=== PATIENT | male | born 1960 | race Caucasian/White ===

== ENCOUNTER 2019-09-20 12:03 | Emergency (ER) | payer BC ==
[2019-09-20] MEDS ORDERED: CLONIDINE HCL 0.1 MG TABLET PO ONE (12:53)
--- NOTE | 2019-09-20 12:56 | ER Document Report ---
ED Medical Screen (RME) - General Chief Complaint: High Blood Pressure Stated Complaint: HIGH BLOOD PRESSURE Time Seen by Provider: 09/20/19 12:36 Mode of Arrival: Ambulatory Information source: Patient Notes: Patient presents complaining of right ear pain for the past 2 days. Patient does report drainage to the ear canal. Patient also with asymptomatic hypertension. Patient was seen at urgent care and had a EKG performed and was told that he had an abnormal EKG and that he should present to the emergency for further evaluation of his blood pressure. Patient denies any chest pain, he adache, back pain, abdominal pain, lightheadedness or dizziness. I have greeted and performed a rapid initial assessment of this patient. A comprehensive ED assessment and evaluation of the patient, analysis of test results and completion of the medical decision making process will be conducted by additional ED providers. - Related Data Allergies/Adverse Reactions: No Known Allergies Allergy (Verified 09/20/19 12:35) Physical Exam - Vital signs Vitals: Temp Pulse Resp BP Pulse Ox 98.4 F 58 L 16 207/96 H 100 09/20/19 12:35 09/20/19 12:35 09/20/19 12:35 09/20/19 12:35 09/20/19 12:35 - Cardiovascular Rhythm: Regular Heart sounds: S1 appreciated, S2 appreciated Murmur: No Course - Re-evaluation Re-evalutation: 09/20/19 12:[address] Weir who reviewed patient's outpatient EKG. Recommends working patient up and giving Catapres at this time for blood pressure. - Vital Signs Vital signs: Temp Pulse Resp BP Pulse Ox 98.4 F 58 L 16 207/96 H 100 09/20/19 12:35 09/20/19 12:35 09/20/19 12:35 09/20/19 12:35 09/20/19 12:35
[2019-09-20 13:31] LABS: ABSOLUTE EOSINOPHILS # (AUTO) 0.1 10^3/uL (0.0-0.6); ABSOLUTE MONOCYTES (AUTO) 0.7 10^3/uL (0.1-1.4); ABSOLUTE NEUT (AUTO) 3.6 10^3/uL (1.7-8.2); BASOPHILS % (AUTO) 0.6 % (0-2); EOSINOPHILS % (AUTO) 1.2 % (0-6); HEMATOCRIT 45.2 % (37.9-51.0); HEMOGLOBIN 15.6 g/dL (13.5-17.0); LYMPHOCYTES % (AUTO) 40.2 % (13-45); MEAN CORPUSCULAR HEMOGLOBIN 30.2 pg (27.0-33.4); MEAN CORPUSCULAR HGB CONC 34.5 g/dL (32.0-36.0); MEAN CORPUSCULAR VOLUME 87 fl (80-97); MONOCYTES % (AUTO) 9.9 % (3-13); PLATELET COUNT 179 10^3/uL (150-450); RED BLOOD COUNT 5.17 10^6/uL (4.35-5.55); RED CELL DISTRIBUTION WIDTH 13.6 % (11.5-14.0); SEGMENTED NEUTROPHILS % (AUTO) 48.1 % (42-78); TOTAL CELLS COUNTED % (AUTO) 100 %; WHITE BLOOD COUNT 7.4 10^3/uL (4.0-10.5)
[2019-09-20 13:45] LABS: ALBUMIN 4.5 g/dL (3.5-5.0); ALKALINE PHOSPHATASE 81 U/L (38-126); ANION GAP 10 (5-19); ASPARTATE AMINO TRANSFERASE 34 U/L (17-59); BILIRUBIN,DIRECT 0.2 mg/dL (0.0-0.4); BILIRUBIN,TOTAL 0.7 mg/dL (0.2-1.3); BLOOD UREA NITROGEN 17 mg/dL (7-20); CALCIUM 9.6 mg/dL (8.4-10.2); CARBON DIOXIDE 30 mmol/L (22-30); CHLORIDE 99 mmol/L (98-107); GLUCOSE 108 mg/dL (75-110); POTASSIUM 4.1 mmol/L (3.6-5.0); TOTAL PROTEIN 8.2 g/dL (6.3-8.2)
--- NOTE | 2019-09-20 14:35 | RADIOLOGY REPORT (SQ) ---
EXAM DESCRIPTION: CHEST 2 VIEWS COMPLETED DATE/TIME: 09/20/2019 2:18 pm REASON FOR STUDY: HTN COMPARISON: None. EXAM PARAMETERS: NUMBER OF VIEWS: two views TECHNIQUE: PA and lateral views of the chest were obtained. RADIATION DOSE: NA LIMITATIONS: none FINDINGS: LUNGS AND PLEURA: No consolidation, pleural effusion or pneumothorax. MEDIASTINUM AND HILAR STRUCTURES: No mediastinal or hilar contour abnormality. HEART AND VASCULAR STRUCTURES: The cardiac silhouette and pulmonary vasculature are within normal pastrana its. BONES: No acute findings. HARDWARE: None in the chest. OTHER: No other finding. IMPRESSION: No acute cardiopulmonary process. TECHNICAL DOCUMENTATION: JOB ID: [id number] [email or web address]- All Rights Reserved Reading location - IP/workstation name: [email or web address]
[2019-09-20] MEDS ORDERED: AMOXICILLIN TRIHYDRATE 500 MG CAPSULE PO ONE (16:03)
--- NOTE | 2019-09-20 16:03 | ER Document Report ---
ED General - General Chief Complaint: High Blood Pressure Stated Complaint: HIGH BLOOD PRESSURE Time Seen by Provider: 09/20/19 12:36 Primary Care Provider: YO TRISTAN MD [ACTIVE STAFF] - Follow up as needed MANUEL CEE MD [ACTIVE STAFF] - Follow up as needed HIREN WAGNER MD [ACTIVE STAFF] - Follow up as needed EVAN NELSON MD [ACTIVE STAFF] - Follow up as needed CHAR OROPEZA DO [NO LOCAL MD] - Follow up as needed Mode of Arrival: Ambulatory Notes: Patient is a 59-year-old male who presents to the emergency department with a chief complaint of right ear pain. Patient reports prior to arrival he was seen at the urgent care and sent to the emergency department for an abnormal EKG, elevated blood pressure above 200 systolic. Patient reports he is not having any symptoms such as headache, dizziness, lightheadedness, chest pain or palpitations. Patient reports he has not seen a doctor in over 10 years. Patient reports his biggest complaint is the right ear pain and that no one has given him a diagnosis or medication for his possible ear infection. Patient reports that he is under a lot of stress at work and is a very active individual. Patient denies recent swelling in his legs. Patient reports that he does not check his blood pressure as he has not had any symptoms. Patient reports that even at work when he is active he is asymptomatic. - Related Data Allergies/Adverse Reactions: No Known Allergies Allergy (Verified 09/20/19 12:35) Past Medical History - General Information source: Patient - Social History Smoking Status: Former Smoker Frequency of alcohol use: Daily - few beers per day Drug Abuse: None Family History: None Patient has suicidal ideation: No Patient has homicidal ideation: No - Past Medical History Cardiac Medical History: Reports: None Pulmonary Medical History: Reports: None EENT Medical History: Reports: None Neurological Medical History: Reports: None Endocrine Medical History: Reports: None Renal/ Medical History: Reports: None Malignancy Medical History: Reports None GI Medical History: Reports: None Musculoskeletal Medical History: Reports None Skin Medical History: Reports None Psychiatric Medical History: Reports: None Traumatic Medical History: Reports: None Infectious Medical History: Reports: None Surgical Hx: Negative Review of Systems - Review of Systems Constitutional: No symptoms reported EENT: See HPI Cardiovascular: No symptoms reported Respiratory: No symptoms reported Gastrointestinal: No symptoms reported Genitourinary: No symptoms reported Male Genitourinary: No symptoms reported Musculoskeletal: No symptoms reported Skin: No symptoms reported Hematologic/Lymphatic: No symptoms reported Neurological/Psychological: No symptoms reported Physical Exam - Vital signs Vitals: Temp Pulse Resp BP Pulse Ox 98.4 F 58 L 16 207/96 H 100 09/20/19 12:35 09/20/19 12:35 09/20/19 12:35 09/20/19 12:35 09/20/19 12:35 Interpretation: Hypertensive - Notes Notes: GENERAL: Well-appearing, well-nourished and in no acute distress. HEAD: Atraumatic, normocephalic. EYES: Pupils equal round and reactive to light, extraocular movements intact, sclera anicteric, conjunctiva are normal. ENT: Left ear unremarkable without erythema, edema externally. There is no mastoid or tragus tenderness. Patient's right ear does reveal some erythema as well as edema. There is no mastoid tenderness but there is tragus tenderness with palpation. Patient does have a yellow exudate draining out of the ear canal. Ear canal is significantly edematous. I was able to visualize the TM which did reveal an otitis media with effusion. There is no evidence of perforation. Nares patent, oropharynx clear without exudates. Moist mucous membranes. NECK: Normal range of motion, supple without lymphadenopathy or JVD. No nuchal rigidity. LUNGS: Breath sounds clear to auscultation bilaterally and equal. No wheezes rales or rhonchi. HEART: Regular rate and rhythm without murmurs, rubs or gallops. ABDOMEN: Soft, nontender, normoactive bowel sounds. No guarding, no rebound. No masses appreciated. BACK: No cervical, thoracic, lumbar midline tenderness. No saddle anesthesia, normal distal neurovascular exam. GENITOURINARY: Deferred. EXTREMITIES: Normal range of motion, no pitting or edema. No clubbing or cyanosis. NEUROLOGICAL: Cranial nerves II through XII grossly intact. Normal speech, normal gait. PSYCH: Normal mood, normal affect. SKIN: Warm, Dry, normal turgor, no rashes or lesions noted. Course - Re-evaluation Re-evalutation: 09/20/19 17:07 I did discuss the patient's case with Dr. Haskins my supervising physician who recommends placing the patient on a two-week course of chlorthalidone, having the patient follow-up with a primary care physician within the next 2 weeks. Did show her the EKG as it is abnormal but the patient is asymptomatic. Patient's blood pressure 180/108 at time of discharge. I did reiterate multiple times to the patient that it is very important to follow-up with a doctor as he can have a stroke or a heart attack with such an elevated blood pressure. I did inform him that this is not new since he was asymptomatic. Patient reports he does have insurance and will follow-up. I did give the patient a multiple primary care referrals in the area. Patient has remained asymptomatic here in the emergency department without chest pain, shortness of breath. Patient biggest complaint was his right ear pain. I did place an ear wick into the right ear has it was significantly swollen and gave the patient his first dose of Ciprodex drops here. Patient also be placed on oral antibiotics for his otitis media. - Vital Signs Vital signs: Temp Pulse Resp BP Pulse Ox 98.3 F 58 L 16 180/108 H 100 09/20/19 16:46 09/20/19 16:46 09/20/19 12:35 09/20/19 17:00 09/20/19 12:35 - Laboratory Result Diagrams: 09/20/19 13:05 09/20/19 13:05 Laboratory results interpreted by me: Patient's lab work was unremarkable without a leukocytosis, anemia, alteration electrolytes or kidney function. Patient's liver enzymes are within normal limits. Patient's troponin is negative. Laboratory 09/20/19 09/20/19 09/20/19 13:05 13:05 13:05 WBC 7.4 RBC 5.17 Hgb 15.6 Hct 45.2 MCV 87 MCH 30.2 MCHC 34.5 RDW 13.6 Plt Count 179 Lymph % (Auto) 40.2 [place] % (Auto) 9.9 Eos % (Auto) 1.2 Baso % (Auto) 0.6 Absolute Neuts (auto) 3.6 Absolute Lymphs (auto) 3.0 Absolute Monos (auto) 0.7 Absolute Eos (auto) 0.1 Absolute Basos (auto) 0.0 Seg Neutrophils % 48.1 Sodium 138.7 Potassium 4.1 Chloride 99 Carbon Dioxide 30 Anion Gap 10 BUN 17 Creatinine 0.90 Est GFR ( Amer) > 60 Est GFR (MDRD) Non-Af > 60 Glucose 108 Calcium 9.6 Total Bilirubin 0.7 Direct Bilirubin 0.2 Neonat Total Bilirubin Not Reportable Neonat Direct Bilirubin Not Reportable Neonat Indirect Bili Not Reportable AST 34 ALT 52 Alkaline Phosphatase 81 Troponin I < 0.012 Total Protein 8.2 Albumin 4.5 - Diagnostic Test Radiology reviewed: Reports reviewed Radiology results interpreted by me: 09/20/19 17:11 Chest X-Ray 09/20/19 12:53 IMPRESSION: No acute cardiopulmonary process. - EKG Interpretation by Me Additional EKG results interpreted by me: 09/20/19 17:20 Patient's EKG shows a sinus rhythm with a heart rate of 59. Patient's ND interval is 200, QT is 400 and QTc is 397. Patient has a normal axis deviation. Patient does have very small amount of T wave inversion in lead III, V5, V6. There is no ST elevation, no ectopy. No previous EKG for comparison. Discharge - Discharge Clinical Impression: Right ear pain, Abnormal EKG Right otitis media Qualifiers: Otitis media type: unspecified Qualified Code(s): H66.91 - Otitis media, unspecified, right ear Right otitis externa Qualifiers: Otitis externa type: unspecified type Chronicity: acute Qualified Code(s): H60.501 - Unspecified acute noninfective otitis externa, right ear Hypertension Qualifiers: Hypertension type: unspecified Qualified Code(s): I10 - Essential (primary) hypertension Condition: Stable Disposition: HOME, SELF-CARE Instructions: Use of Ear Drops (OM), Using Ear Drops with a Wick (OM), High Blood Pressure (OM), Oral Narcotic Medication (OM) Additional Instructions: *Today was seen in the emergency department for right ear pain and elevated blood pressure. We did give you a dose of clonidine which is a one-time dose of blood pressure medication which did seem to slightly improve your blood press ure. We are placing you on antihypertensive medication which you will take once daily for 2 weeks. We have only given you a 14-day course of this as you do need to follow-up with a primary care physician. I have referred you to Dr. Nelson as well as Dr. Tristan. I would call the office tomorrow to schedule a follow-up appointment to establish care. It is very important that you take the right steps to help manage your high blood pressure. Your EKG was slightly abnormal, we are not sure if this is new. You are not having any symptoms such as headache, chest pain, shortness of breath, palpitations and it is likely that your blood pressure is always elevated and has been elevated for a while since you are asymptomatic. Other steps that you can take to help with your elevated blood pressure is limit salt in the diet, avoid caffeine, energy drinks and limit stress. Very important that you follow-up with a doctor to manage your blood pressure as you can have a stroke or heart attack. *Please return to the emergency department for any new or worsening symptoms such as chest pain, headache, dizziness, lightheadedness or any new or concerning symptoms. OTITIS EXTERNA: You have otitis externa -- an infection of the outer ear canal. This can be very painful. It's sometimes called "swimmer's ear," because it often occurs after prolonged water exposure. Many things, such as earwax and dirt in the ear, can contribute to it. The usual treatment is antibiotic/antiinflammatory ear drops. Occasionally, a wick will be placed in the ear to draw in the medicine. If the infection is severe, an oral antibiotic may be prescribed. Pain medication is often needed. Avoid getting water in the ear. Outer ear infections often take longer to heal than you might expect. Some tenderness and ache in the ear may persist for about two weeks. See your physician if you fail to improve as expected. Call the doctor at once if you develop fever, increasing swelling (particularly if it makes your ear "poke out"), severe headache, stiff neck, or decreased hearing. USE OF EAR DROPS: Your ear drops won't do much good if they don't get all the way in. To help the ear drops penetrate all the way to the ear drum, use the following technique. If you encounter problems of any kind, notify the physician. (1) Lay your head sideways on a pillow. (2) Place the dropper tip just barely inside the ear canal, almost touching the bottom side of the canal. The liquid is tolerated better on the bottom of the canal. (3) Squeeze out the appropriate amount of medicine, and remove the dropper. (4) Grab the back of the ear (just behind the ear canal) between your index finger and thumb. (5) Tug up, then let the ear drop back. Repeat several times. This pumps the medicine down. (6) Wait five minutes, then place a cotton ball in the ear canal to catch and hold the medicine. USING EAR DROPS WITH A WICK: A wick may be placed in your ear. This keeps the medicine in constant contact with the ear canal. You'll need to put fresh medicine into the wick. Follow these instructions. If you encounter problems of any kind, notify the [facility] sician. (1) Lay your head sideways on a pillow. (2) Place the dropper tip so it's almost touching the wick. (3) Squeeze out the appropriate amount of medicine. (4) Wait a minute for the medicine to soak in before sitting up. (5) Wipe away any extra medicine from your ear. OTITIS MEDIA: You have a middle ear infection (otitis media). This is usually a complication of a cold or sore throat. The middle ear cavity becomes filled with infection. Pressure and stretching of the ear drum cause pain. Antibiotics are required. A 10 day course is usually prescribed. A decongestant may be recommended if you have a "runny nose." You may need anesthetic drops or other pain medication. A follow-up exam may be recommended to make sure the infection has compl etely cleared. If the ear begins to drain, it means the ear drum has ruptured. This will usually heal spontaneously. However, it means you should keep the ear dry until re-examined by a doctor. Call the physician or return for examination at once if there is severe headache, stiff neck, confusion, increasing fever, or dizziness. You should improve significantly within two days. If you're not better, call the doctor. AMOXICILLIN: Amoxicillin is a member of the penicillin family. It covers the germs likely to cause ear, bronchial, and urinary infections better than plain peni cillin. Amoxicillin can be taken without regard to meals. Nausea after taking the medication is rare, but can occur. Diarrhea can occur, particularly in small children. Vaginal yeast infections and oral thrush in infants are also common. Contact your physician if these problems occur. Allergy to penicillins is common. If you have had an allergic reaction to any drug of the penicillin family, you should never take any other penicillin. Notify your doctor at once if you develop hives, itching, swelling, faintness, or shortness of breath. Less serious side effects can include nausea or diarrhea. USE OF ACETAMINOPHEN (Tylenol): Acetaminophen may be taken for pain relief or fever control. It's much safer than aspirin, offering a wider range of "safe" dosages. It is safe during . Some brand names are Tylenol, Panadol, Datril, Anacin 3, Tempra, and Liquiprin. Acetaminophen can be repeated every four hours. The following are maximum recommended dosages: WEIGHT Dose Drops Elixir Chewable(80mg) (LBS.) drprs=droppers tsp=teaspoon 6 40 mg 0.4 ml (1/2) 6-11 80 mg 0.8 ml (full) tsp 1 tab 12-16 120 mg 1 1/2 drprs 3/4 tsp 1 1/2 tabs 17-23 160 mg 2 drprs 1 tsp 2 tabs 24-30 240 mg 3 drprs 1 1/2 tsp 3 tabs 30-35 320 mg 2 tsp 4 tabs 36-41 360 mg 2 1/4 tsp 4 1/2 tabs 42-47 400 mg 2 1/2 tsp 5 tabs 48-53 480 mg 3 tsp 6 tabs 54-59 520 mg 3 1/4 tsp 6 1/2 tabs 60-64 560 mg 3 1/2 tsp 7 tabs 65-70 600 mg 3 3/4 tsp 7 1/2 tabs 71-76 640 mg 4 tsp 8 tabs 77-82 720 mg 4 1/2 tsp 9 tabs 83-88 800 mg 5 tsp 10 tabs >89 pounds or adults 650 mg to 900 mg Acetaminophen can be repeated every four hours. Maximum dose not to exceed 4000 mg a day. These maximum recommended dosages are slightly higher than the dosages written on the product container, but these dosages are very safe and below the toxic dosage for acetaminophen. HIGH BLOOD PRESSURE REQUIRING TREATMENT: Your blood pressure is high. This is called "hypertension." Today's reading was __207/96___ (normal is less than 140/90). Your history and exam suggest that this is not a temporary problem. You need treatment of your blood pressure. If left untreated, high blood pressure greatly increases your risk of heart attack and stroke. Please don't ignore this problem. If you have blood pressure medicine but aren't using it regularly, start taking it again. Some simple things you can do to help are: Get some aerobic exercise for at least 20 minutes on a daily basis. (See your doctor before beginning any new exercise program.) Eat a low-fat diet. Lose excess weight. Avoid salty foods a nd avoid adding salt to any of the foods you eat. Avoid diet pills, decongestants, "energizing" herbs, and other medicines that elevate blood pressure. There are many different medicines that treat blood pressure. If your medication causes unpleasant side effects, call your doctor. There are others you can try. Treating hypertension is a life-long investment in your health. CLONIDINE (CATAPRES): Clonidine is blood-pressure medicine. It works in your brain, making the nervous system relax the blood vessels. This medicine can also be used for symptoms of narcotic withdrawal. Clonidine frequently causes dry mouth, drowsiness, and dizziness. These symptoms go away as you continue to use it. Rest for the first couple of days. Don't drive or use machinery until you're back to normal. Never stop clonidine suddenly! There can be a "rebound" severe increase in blood pressure, headache, and agitation. Be sure you always have enough of the medicine. Call the doctor if you have any new symptoms such as skin rash, weakness, severe lightheadedness, chest pain, headache, or depression. FOLLOW-UP CARE: If you have been referred to a physician for follow-up care, call the physicians office for an appointment as you were instructed or within the next two days. If you experience worsening or a significant change in your symptoms, notify the physician immediately or return to the Emergency Department at any time for re-evaluation. Prescriptions: Amoxicillin 2 tab PO TID #60 tab Chlorthalidone [Hygroton 25 mg Tablet] 12.5 mg PO DAILY 14 Days #14 tablet Forms: Elevated Blood Pressure Referrals: YO TRISTAN MD [ACTIVE STAFF] - Follow up as needed EVAN NELSON MD [ACTIVE STAFF] - Follow up as needed MANUEL CEE MD [ACTIVE STAFF] - Follow up as needed HIREN WAGNER MD [ACTIVE STAFF] - Follow up as needed JOHNNA,CHAR, DO [NO LOCAL MD] - Follow up as needed
[2019-09-20] MEDS ORDERED: CHLORTHALIDONE 25 MG TABLET PO ONE (16:19)
[2019-09-20] MEDS: CIPROFLOXACIN HCL/DEXAMETH OTIC DROP 7.5 ML AD SCH ×2 (16:23→17:02)
[2019-09-20 17:11] VITALS: BP 180/108
[2019-09-20] MEDS ORDERED: CIPROFLOXACIN HCL/DEXAMETH OTIC DROP 7.5 ML AD SCH (18:00)
--- NOTE | 2019-09-21 00:59 | EKG REPORT ---
SEVERITY:- ABNORMAL ECG - SINUS RHYTHM CONSIDER ANTEROSEPTAL INFARCT VERSUS LEAD PLACEMENT BORDERLINE T ABNORMALITIES, DIFFUSE LEADS : Confirmed by: Barbara Hughes MD 21-Sep-2019 00:59:29
== END 2019-09-20 17:21 | disposition home or self-care (01) ==
LOC: ER 12:03
DX: H92.01 Otalgia, right ear (principal); H66.91 Otitis media, unspecified, right ear; H60.501 Unspecified acute noninfective otitis externa, right ear; R94.31 Abnormal electrocardiogram [ECG] [EKG]; I10 Essential (primary) hypertension
CPT/HCPCS: 93005; 99284; 36415; 85025; 80053; 84484; 71046; 93010; J3490

== ENCOUNTER 2019-10-09 17:03 | Emergency (ER) | payer OTHER, BC ==
--- NOTE | 2019-10-09 18:17 | ER Document Report ---
ED Hand/Wrist Injury - General Chief Complaint: Finger Injury Stated Complaint: LEFT 4TH DIGIT INJURY Time Seen by Provider: 10/09/19 18:14 - Related Data Allergies/Adverse Reactions: No Known Allergies Allergy (Verified 09/20/19 12:35) Past Medical History - Social History Family History: None Physical Exam - Vital signs Vitals: Temp Pulse Resp BP Pulse Ox 98.2 F 65 20 170/82 H 96 10/09/19 18:12 10/09/19 18:12 10/09/19 18:12 10/09/19 18:12 10/09/19 18:12 Course - Vital Signs Vital signs: Temp Pulse Resp BP Pulse Ox 98.2 F 65 20 170/82 H 96 10/09/19 18:12 10/09/19 18:12 10/09/19 18:12 10/09/19 18:12 10/09/19 18:12
--- NOTE | 2019-10-09 18:22 | ER Document Report ---
ED Medical Screen (RME) - General Chief Complaint: Finger Injury Stated Complaint: LEFT 4TH DIGIT INJURY Time Seen by Provider: 10/09/19 18:14 Mode of Arrival: Ambulatory Information source: Patient Notes: 59-year-old male presented to ED for injury to the end of the left ring finger. He caught it in a gissel belt which took off the end of his finger. He is not sure when he got his last tetanus shot. You are allergic to anything states he is not allergic to any antibiotics. The gissel was in a new unused large air conditioning unit. This is the air conditioning unit that is so big he can crawl inside it and the machine has so he a 20 hp motor. This is possibly a open fracture will get x-rays tetanus and have seen by another provider I have greeted and performed a rapid initial assessment of this patient. A comprehensive ED assessment and evaluation of the patient, analysis of test results and completion of medical decision making process will be conducted by an additional ED providers. - Related Data Allergies/Adverse Reactions: No Known Allergies Allergy (Verified 09/20/19 12:35) Physical Exam - Vital signs Vitals: Temp Pulse Resp BP Pulse Ox 98.2 F 65 20 170/82 H 96 10/09/19 18:12 10/09/19 18:12 10/09/19 18:12 10/09/19 18:12 10/09/19 18:12 Course - Vital Signs Vital signs: Temp Pulse Resp BP Pulse Ox 98.2 F 65 20 170/82 H 96 10/09/19 18:12 10/09/19 18:12 10/09/19 18:12 10/09/19 18:12 10/09/19 18:12
--- NOTE | 2019-10-09 18:58 | RADIOLOGY REPORT (SQ) ---
EXAM DESCRIPTION: FINGER LEFT COMPLETED DATE/TIME: 10/09/2019 6:34 pm REASON FOR STUDY: Avulsion left ring finger COMPARISON: None. NUMBER OF VIEWS: Three views. TECHNIQUE: AP, lateral, and oblique images acquired of the left fourth finger. LIMITATIONS: None. FINDINGS: Normal bone density Partial amputation of the left 4th distal finger tip/fingernail soft tissues with partial amputation of the distal tuft, left 4th finger distal phalanx. Small acute avulsion fragment off the dorsal base distal phalanx 4th finger is suspected on lateral, marked with an arrow. No retained radiopaque foreign body IMPRESSION: Partial amputation distal 4th finger tip including finger soft tissues and distal tuft, 4th finger distal phalanx TECHNICAL DOCUMENTATION: JOB ID: [id number] [employer]- All Rights Reserved Reading location - IP/workstation name: [email or web address]
[2019-10-09] MEDS ORDERED: OXYCODONE-ACETAMINOPHEN 5-325 MG TABLET PO ONE (20:41)
[2019-10-09] MEDS ORDERED: DIPH/PERTUSS(ACELL)/TETANUS VAC/PF 0.5 ML SYR (>=10YO) IM ONE (21:39)
[2019-10-09] MEDS ORDERED: LIDOCAINE 1% INJ (10 MG/ML) 10 ML MDV INJ ONE (21:40)
--- NOTE | 2019-10-09 22:01 | ER Document Report ---
ED General - General Chief Complaint: Finger Injury Stated Complaint: LEFT 4TH DIGIT INJURY Time Seen by Provider: 10/09/19 18:14 Primary Care Provider: YO TRISTAN MD [Primary Care Provider] - Follow up as needed Mode of Arrival: Ambulatory Information source: Patient TRAVEL OUTSIDE OF THE [place] IN LAST 30 DAYS: No - HPI Onset: Just prior to arrival Onset/Duration: Sudden Quality of pain: Sharp, Throbbing Severity: Moderate Pain Level: 2 Associated symptoms: Other - bleeding from finger injury Exacerbated by: Movement Relieved by: Remaining still Similar symptoms previously: No Recently seen / treated by doctor: No Notes: 59 year old male with a history of HTN here for evaluation of a left 4th finger injury. The patient got his finger stuck in a mechanical gissel in an engine and the pad of his finger was torn off. The patient washed his finger the best he could and bandaged it up and then came to the ER for evaluation. - Related Data Allergies/Adverse Reactions: No Known Allergies Allergy (Verified 10/09/19 18:28) Home Medications: Losartan Past Medical History - General Information source: Patient - Social History Smoking Status: Former Smoker Frequency of alcohol use: Social Drug Abuse: None Lives with: Alone Family History: Reviewed & Not Pertinent Patient has suicidal ideation: No Patient has homicidal ideation: No - Past Medical History Cardiac Medical History: Reports: Hx Hypertension Review of Systems - Review of Systems Constitutional: No symptoms reported EENT: No symptoms reported Cardiovascular: No symptoms reported Respiratory: No symptoms reported Gastrointestinal: No symptoms reported Genitourinary: No symptoms reported Male Genitourinary: No symptoms reported Musculoskeletal: Other - left 4th finger with finger tip avulation and 0.5cm laceration along each side of the finger Skin: Other - finger pad avulsion and lacerations of left 4th finger Hematologic/Lymphatic: No symptoms reported Neurological/Psychological: No symptoms reported -: Yes All other systems reviewed and negative Physical Exam - Vital signs Vitals: Temp Pulse Resp BP Pulse Ox 98.2 F 65 20 170/82 H 96 10/09/19 18:12 10/09/19 18:12 10/09/19 18:12 10/09/19 18:12 10/09/19 18:12 - Notes Notes: GENERAL: Well-appearing, well-nourished and in no acute distress. HEAD: Atraumatic, normocephalic. EYES: Pupils equal round and reactive to light, extraocular movements intact, sclera anicteric, conjunctiva are normal. ENT: TMs normal, nares patent, oropharynx clear without exudates. Moist mucous membranes. NECK: Normal range of motion, supple without lymphadenopathy or JVD. LUNGS: Breath sounds clear to auscultation bilaterally and equal. No wheezes rales or rhonchi. HEART: Regular rate and rhythm without murmurs, rubs or gallops. ABDOMEN: Soft, nontender, normoactive bowel sounds. No guarding, no rebound. No masses appreciated. EXTREMITIES: Normal range of motion, no pitting or edema. No clubbing or cyanosis. Left 4th finger with finger pad avulsion. and 0.5cm lacerations on both sides of the finger. NEUROLOGICAL: Cranial nerves II through XII grossly intact. Normal speech, normal gait. PSYCH: Normal mood, normal affect. SKIN: Warm, Dry, normal turgor, no rashes or lesions noted. Course - Re-evaluation Re-evalutation: 10/09/19 22:28 The patient has a left 4th finger pad avulsion with an open Tuft Fracture. Patient's wound was irrigated with saline and the 2 lacerations on the sides of his finger that could be repaired were repaired. Dr. Porter of Orthopedics was consulted and he will follow up with the patient tomorrow. Dr. Porter recommends antibiotics and Xeroform Dressing. Patient had his Tetanus updated and he was DCed with a course of Keflex and [place]. - Vital Signs Vital signs: Temp Pulse Resp BP Pulse Ox 98.2 F 65 20 170/82 H 96 10/09/19 18:12 10/09/19 18:12 10/09/19 18:12 10/09/19 18:12 10/09/19 18:12 Procedures - Laceration/Wound Repair Left 4th Finger #1 Wound length (cm): 0.5 Wound's Depth, Shape: Linear Laceration pre-procedure: Sterile drapes applied Anesthetic type: 1% Lidocaine Wound explored: Clean Wound Repaired With: Sutures Suture Size/Type: 5:0 Number of Sutures: 3 Layer Closure?: No Post-procedure wound care: Sterile dressing applied Complications: No Left Wound length (cm): 0.5 Wound's Depth, Shape: Superficial Laceration pre-procedure: Sterile drapes applied Anesthetic type: 1% Lidocaine Volume Anesthetic (mLs): 1 Wound explored: Clean Wound Repaired With: Sutures Suture Size/Type: 5:0 Number of Sutures: 2 Post-procedure wound care: Sterile dressing applied Discharge - Discharge Clinical Impression: Open fracture of tuft of distal phalanx of finger Avulsion, finger tip Qualifiers: Encounter type: initial encounter Qualified Code(s): S61.209A - Unspecified open wound of unspecified finger without damage to nail, initial encounter Condition: Stable Disposition: HOME, SELF-CARE Additional Instructions: Take Keflex (antibiotic) as prescribed. Wash your finger several times a days. Keep your finger covered in antibiotic ointment until completely healed. Call Dr. Porter of Orthopedics first thing tomorrow morning to set up a follow up appointment either for tomorrow or the day after. Use tylenol and motrin for pain and [place] for pain not well controlled. Prescriptions: Cephalexin Monohydrate [Keflex 500 mg Capsule] 500 mg PO Q6H 10 Days #40 capsule Hydrocodone/Acetaminophen [[place] 5-325 mg Tablet] 1 tab PO Q8H PRN #10 tablet PRN Reason: Referrals: YO TRISTAN MD [Primary Care Provider] - Follow up as needed BRIAN PORTER DO [ACTIVE STAFF] - Follow up as needed
[2019-10-09] MEDS ORDERED: CEPHALEXIN 500 MG CAPSULE PO ONE (22:12)
[2019-10-09 23:29] VITALS: BP 166/91
== END 2019-10-09 23:27 | disposition home or self-care (01) ==
LOC: ER 17:03
DX: S62.635B Displaced fracture of distal phalanx of left ring finger, initial encounter for open fracture (principal); S61.209A Unspecified open wound of unspecified finger without damage to nail, initial encounter; W31.89XA Contact with other specified machinery, initial encounter; Y99.0 Civilian activity done for income or pay; I10 Essential (primary) hypertension; Z23 Encounter for immunization
CPT/HCPCS: 90471; 90715; 99283